=== PATIENT | female | born 1985 | race Caucasian/White ===

== ENCOUNTER 2020-01-19 13:29 | Emergency (ER) | payer OTHER, SELFPAY ==
[2020-01-19 13:35] VITALS: BP 119/75; PULSE 74; RESP 20; TEMP 36.8; O2SAT 100
--- NOTE | 2020-01-19 13:44 | ED.GENADULT ---
HPI - General Adult General Chief complaint: Wound/Laceration Stated complaint: sunburn on chest and back Time Seen by Provider: 01/19/20 13:40 Source: patient and RN notes reviewed Mode of arrival: ambulatory Limitations: no limitations History of Present Illness HPI narrative: 34 old female presents with concern for sunburn. Reports approximately 2 weeks ago she began to get a sunburn, was reexposed to the sun several times causing blisters on her back and on her breast. Reports the blisters have since popped. She has been using Silvadene cream. She wanted to make sure the areas were not infected. MD complaint: Sunburn Related Data Home Medications Medication Instructions Recorded Confirmed atenolol 50 mg PO DAILY 01/19/20 01/19/20 buspirone 10 mg PO BID 01/19/20 01/19/20 diphenhydramine HCl [Benadryl] 50 mg PO BID 01/19/20 01/19/20 escitalopram oxalate [Lexapro] 20 mg PO DAILY 01/19/20 01/19/20 gabapentin 300 mg PO TID 01/19/20 01/19/20 norethindrone-e.estradiol-iron 1 tablet PO DAILY 01/19/20 01/19/20 [[place] Fe 08/16 (28)] trazodone 150 mg PO HS 01/19/20 01/19/20 Allergies Allergy/AdvReac Type Severity Reaction Status Date / Time No Known Allergies Allergy Verified 01/19/20 13:44 Review of Systems Review of Systems: Narrative: CONSTITUTIONAL: Denies malaise, chills, sweats, or fever. CARDIOVASCULAR: Denies chest pain, palpitations, or edema. RESPIRATORY: Denies cough or dyspnea. GASTROINTESTINAL: Denies nausea, vomiting, diarrhea SKIN: Reports sunburn, blistered, healing blisters MUSCULOSKELETAL: Denies myalgia. All systems reviewed & are unremarkable except as noted in HPI and below PMFSH Comments At time of signature, agree with nursing past medical, surgical, social and family history. There is no relevant family history pertinent to the presenting complaint Exam Narrative: Exam Narrative: GENERAL: Well-appearing, well-nourished, and in no acute distress. HEAD: Normocephalic EYES: PERRLA, conjunctivae clear ENT: Nares clear. Mucous membranes moist. NECK: Supple. CHEST: No respiratory distress. Speaks in full sentences. HEART: Regular rate and rhythm. SKIN: Warm, dry, no rash. Erythema consistent with sunburn noted to upper breast area, upper back area. Healing blister sites noted, tissue bed closed, pink. No surrounding edema, induration, open sores, or other signs of infection. NEURO: Alert and oriented x3. PSYCH: Normal mood and affect Course Course Emergency Course: Patient is aware of diagnosis, understands and agrees to treatment plan. Anticipatory guidance given. Patient agrees to follow-up as directed and is aware of reasons to seek care at the emergency department. Portions of this record may have been created with voice recognition software Vital Signs Vital signs: Vital Signs Temperature 98.2 F 01/19/20 13:35 Pulse Rate 74 01/19/20 13:35 Respiratory Rate 01/19/20 13:35 Blood Pressure 119/75 01/19/20 13:35 Pulse Oximetry 100 01/19/20 13:35 Temperature 98.2 F 01/19/20 13:35 Pulse Rate 74 01/19/20 13:35 Respiratory Rate 01/19/20 13:35 Blood Pressure 119/75 01/19/20 13:35 Pulse Oximetry 100 01/19/20 13:35 Reviewed. Medical Decision Making MDM Narrative Medical decision making narrative: Exam findings and imaging show no acute concerns or changes; patient is non-toxic appearing and is in no distress. Patient is appropriate for outpatient treatment and follow-up. Differential Diagnosis Differential Diagnosis: First-degree burn, secondary burn, third-degree burn, cellulitis, wound infection Vital Signs Vital Signs: Vital Signs Temperature 98.2 F 01/19/20 13:35 Pulse Rate 74 01/19/20 13:35 Respiratory Rate 01/19/20 13:35 Blood Pressure 119/75 01/19/20 13:35 Pulse Oximetry 100 01/19/20 13:35 Temperature 98.2 F 01/19/20 13:35 Pulse Rate 74 01/19/20 13:35 Respiratory Rate 01/19/20 13:35 Blood Pres
== END 2020-01-19 13:59 | disposition home or self-care (01) ==
PROVIDERS: Emergency Provider Nurse Practitioner; PCP Physician Assistant
DX: L55.1 Sunburn of second degree (principal); I10 Essential (primary) hypertension; J45.909 Unspecified asthma, uncomplicated; F41.9 Anxiety disorder, unspecified; F32.9 Major depressive disorder, single episode, unspecified
CPT/HCPCS: 99211; G0463